=== PATIENT | male | born 1965 | race Two or more races ===

== ENCOUNTER → 2017-06-09 | Outpatient (REF) | payer OTHER ==
[~2017-06-09] MED LIST: ACET65TA; OMEPPOW18
== END ==
LOC: M SFHCLERA 09:54
PROVIDERS: ATTEND Nurse Practitioner Family
DX: J02.9 Acute pharyngitis, unspecified (principal)

== ENCOUNTER → 2021-04-07 | Outpatient (CLI) | payer BC, OTHER ==
--- NOTE | 2021-04-07 11:47 | REP ---
INDICATION: RUQ PAIN, ENLARGED GB ON CT SCAN. COMPARISON: None. TECHNIQUE/RADIOTRACER AND DOSE: 6.6 mCi of Technetium-99m mebrofenin was injected and sequential anterior images are acquired. 65 minutes after the mebrofenin injection, the patient consumed 8 ounces Ensure and an additional 60 minutes of imaging was acquired. Regions of interest are plotted around the gallbladder. FINDINGS: The initial hepatocellular parenchymal uptake phase is normal and homogeneous. Intra- and extra-hepatic bile ducts are labeled by the 15-minute image. The gallbladder is first labeled on the 20-minute image. There is normal washout from the liver parenchyma into the gallbladder and small intestine on subsequent images. The gallbladder ejection fraction is 60%. Values greater than 35% are considered normal with this technique. IMPRESSION: Normal hepatobiliary scan and normal gallbladder ejection fraction. <Electronically signed by Faheem Amaral > 04/07/21 [id number]
== END ==
LOC: M RAD 08:24
PROVIDERS: ATTEND Internal Medicine
DX: R10.11 Right upper quadrant pain (principal)
CPT/HCPCS: 78227; A9537

== ENCOUNTER → 2022-05-02 | Outpatient (CLI) | payer BC, OTHER | LOC: M WUC 12:23 | PROVIDERS: ATTEND Internal Medicine | DX: M25.511 Pain in right shoulder (principal) ==

== ENCOUNTER → 2023-10-10 | Outpatient (REF) | payer BC, OTHER | LOC: M SFHCDERM 17:26 | PROVIDERS: ATTEND Dermatology | DX: T14.90XD Injury, unspecified, subsequent encounter (principal); W18.30XD Fall on same level, unspecified, subsequent encounter ==

== ENCOUNTER → 2025-01-31 | Outpatient (REF) | payer BC, OTHER | LOC: M LAB REF 14:06 | PROVIDERS: ATTEND Ophthalmology | DX: L91.8 Other hypertrophic disorders of the skin (principal) ==